=== PATIENT | female | born 1995 | race Caucasian/White ===

== ENCOUNTER 2016-10-06 00:07 | Emergency (ER) | payer OTHER ==
[~2016-10-06] VITALS: Ht 170.2 cm; Wt 76.0 kg
[2016-10-06 00:11] VITALS: Ht 170.2 cm; Wt 76.0 kg
[2016-10-06] MEDS ORDERED: DIPHTHERIA/TETANUS/PERTUSSIS 0.5 ML SYR/VIAL IM. ONE (00:30)
--- NOTE | 2016-10-06 00:36 | EMERGENCY ROOM VISIT NOTE ---
History Report prepared by Pato: Yana Franklin Under the Supervision of: Dr. Geoffrey Bauer M.D. First contact with patient: 00:22 Chief Complaint: BURN (MINOR) Stated Complaint: BURN ON LEFT HAND -WORK RELATED History of Present Illness The patient is a 21 year old female who presents to the Emergency Room with complaints of an episode of a left hand burn that occurred 5 hours ago. She rates her discomfort as a 2/10. The patient works in the kitchen of a local restaurant. Tonight she burned her left hand while wiping out a cast iron skillet. Some oil splashed out and burned her. The patient is unsure of her last tetanus. She denies any other chronic medical problems. Source of History: patient Onset: 5 hours ago Position: hand (left) Symptom Intensity: 2/10 Quality: other (burn) Timing: other (episode) Review of Systems See HPI for pertinent positives & negatives. A total of 6 systems reviewed and were otherwise negative. Past Medical & Surgical Surgical Problems: (1) History of reduction mammoplasty Family History Cancer Diabetes mellitus Hypertension Social History Smoking Status: Current Every Day Smoker Alcohol Use: occasionally Housing Status: lives with significant other Occupation Status: employed Allergies Coded Allergies: No Known Allergies (Unverified , 10/06/16) Physical Exam Vital Signs Date Time Temp Pulse Resp B/P Pulse Ox O2 Delivery O2 Flow Rate FiO2 10/06/16 00:11 36.8 103 18 142/74 99 Room Air Physical Exam GENERAL: The patient is sitting on the stretcher, in no distress. NEUROLOGIC: She is awake, alert, and oriented x3. EXTREMITIES: Left upper extremity has several linear partial thickness au with some blistering to the dorsum of the left hand, the total surface area of burn is less than 1 %, no cellulitis, no evidence for neurovascular compromise, no circumferential au. Medical Decision & Procedures Medications Administered Medications (Trade) Dose Ordered Sig/Saulo Route Start Time Stop Time Status Last Admin Dose Admin Diphtheria/ Pertussis/Tetanus Vacc (Adacel Inj) 0.5 ml ONCE ONCE IM. 10/06/16 00:30 10/06/16 00:31 DC 10/06/16 00:40 0.5 ML ED Course 0022: The patient was evaluated in room A12. A complete history and physical exam was performed. 0030: Adacel 0.5 ml IM 0040: Reevaluated the patient. Discussed results and discharge instructions: She verbalized understanding and agreement. The patient is ready for discharge. Medical Decision The patient is a 21 year old female who presents to the ED with complaints of a burn on her left hand. Differential diagnoses considered include: cellulitis, partial thickness or third degree burn, neurovascular compromise. The patient presents with partial thickness au to her left hand along the dorsal aspect. There was no circumferential burn. The burn was less than 1%. There is no cellulitis. The patient was unsure of her last tetanus immunization. The patient was given an Adacel booster IM, the large blisters were drained but the skin was left in place. The wound was cleansed and dressed. The patient was discharged home. Impression Primary Impression: Partial thickness burn of back of left hand Scribe Attestation The scribe's documentation has been prepared under my direction and personally reviewed by me in its entirety. I confirm that the note above accurately reflects all work, treatment, procedures, and medical decision making performed by me. Departure Information Dispostion Home / Self-Care Referrals No Doctor, Assigned (PCP) Forms HOME CARE DOCUMENTATION FORM, IMPORTANT VISIT INFORMATION Patient Instructions My [facility] Additional Instructions clean with soap and water 2x per day keep the area dressed with bacitracin ointment and then the dressing motrin or tylenol for pain return for fever, spreading redness
[2016-10-06] MEDS ORDERED: AMPH20TA2 PO (00:45)
[2016-10-06] MEDS ORDERED: ASPI-390 PO (00:46)
[2016-10-06] MEDS ORDERED: CHOL1TAB42 PO (00:47)
[2016-10-06 00:49] VITALS: BP 138/70; PULSE 103; TEMP 36.8; O2SAT 99
== END 2016-10-06 00:50 | disposition home or self-care (01) ==
LOC: C.EDB 00:09 → C.EDA 00:50
DX: T23.062A Burn of unspecified degree of back of left hand, initial encounter (principal); X10.2XXA Contact with fats and cooking oils, initial encounter; Y92.511 Restaurant or cafe as the place of occurrence of the external cause; Y93.G1 Activity, food preparation and clean up; Y99.0 Civilian activity done for income or pay; F17.200 Nicotine dependence, unspecified, uncomplicated; Z83.3 Family history of diabetes mellitus; Z82.49 Family history of ischemic heart disease and other diseases of the circulatory system; Z23 Encounter for immunization; T31.0 Burns involving less than 10% of body surface